=== PATIENT | female | born 1960 | race Asian ===

== ENCOUNTER 2017-01-01 07:19 | Inpatient (IN) | payer BC ==
[2016-12-29 11:21] VITALS: BMI 22.9
[2016-12-29 11:40] LABS: ADD UMIC NO; URINE BILIRUBIN (Dip) NEGATIVE (NEGATIVE); URINE BLOOD (Dip) NEGATIVE (NEGATIVE); URINE COLOR LT. YELLOW (YELLOW); URINE GLUCOSE (Dip) NEGATIVE (NEGATIVE); URINE KETONES (Dip) NEGATIVE (NEGATIVE); URINE LEUKOCYTE ESTERASE (Dip) NEGATIVE (NEGATIVE); URINE NITRITE (Dip) NEGATIVE (NEGATIVE); URINE TOTAL PROTEIN (Dip) NEGATIVE (NEGATIVE); URINE UROBILINOGEN (Dip) 0.2 E.U./dL (0.1-1.0)
--- NOTE | 2016-12-29 14:28 | PREOPHP ---
DATE OF ADMISSION: 01/01/2017 This patient is being admitted electively on 01/01/[address] Valentino Domingo. HISTORY OF PRESENT ILLNESS: This 56-year-old female has been having low back pain for months. The patient said that at one time the pain that was radiating down her left leg and she was diagnosed wi th left sciatica. She says that the pain has subsided in her left leg; however, she continues to lagos ve low back pain. She describes it as a pressure type pain. She has failed medical therapy and has decided to undergo a lumbar spine surgery. The patient at this time is on no medication. She did have a history of elevated cholesterol and was on a statin drug, but is no longer on that medication . PAST MEDICAL HISTORY: Remarkable for hyperlipidemia, back pain and urinary tract infection. ALLERGIES: SHE HAS NO KNOWN DRUG ALLERGIES. PAST SURGICAL HISTORY: 1. Left carpal tunnel syndrome repair, abdominal surgery for an abdominoplasty. 2. Breast augmentation. 3. . FAMILY HISTORY: Both parents are alive. Her father has had 3 CVAs. SOCIAL HISTORY: She does not smoke. She drinks alcohol socially. 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 REVIEW OF SYSTEMS: CONSTITUTIONAL: No chills, no weight gain, no loss of appetite, no fever, no weakness, no weight lo ss, no fatigue. OPHTHALMOLOGIC: Negative. EARS, NOSE AND THROAT: Negative. CARDIORESPIRATORY: She denies any exertional chest pain, chest pressure, cough, ankle swelling. Abel atkins has no history of heart disease or hypertension. GASTROINTESTINAL: Negative. NEURO: Negative at this time. She did have some left leg sciatica and tingling which has resolved. HEMATOLOGIC AND LYMPHATICS: Negative. DERMATOLOGIC: Negative. UROLOGIC: Negative. PHYSICAL EXAMINATION: GENERAL: At this time reveals a well-developed female in no apparent distress. VITAL SIGNS: Temperature 97.8, blood pressure 108/80, heart rate 60. HEENT: Head normocephalic. Eyes: Extraocular muscles intact. Nose and mouth: Normal. NECK: Supple. No neck vein distention. LUNGS: Clear to auscultation. HEART: Regular rhythm. No murmurs, gallops or rubs. ABDOMEN: Soft, nontender, no masses or megaly. EXTREMITIES: No peripheral edema. Pedal pulses were 2+ bilaterally. IMPRESSION: This patient is cleared for surgery. I will follow the patient along with you postoper atively. Dictated By: LAURA GARCIA MD ND/NTS Conf#: [id number] DID#: [id number] CC: VALENTINO DOMINGO MD;*EndCC*
[~2017-01-01] VITALS: Ht 154.9 cm; Wt 55.4 kg
[2017-01-01] VITALS (23 sets, daily range): BP systolic 99–144; BP diastolic 49–85; PULSE 62–88; RESP 12–19; Ht 154.9 cm; Wt 55.4 kg
[2017-01-01] MEDS: LACTATED RINGER'S 1,000 ML IV* SCH (05:00)
[~2017-01-01 07:19] MED LIST: CEFAZOLIN 2 GM/50 ML (PMX) 50 ML IVPB ONE
--- NOTE | 2017-01-01 07:37 | HPN ---
Date/Time of Note Date/Time of Note DATE: 01/01/17 TIME: 07:37 Interval H&P Admission Note Pt. seen H&P reviewed: No system changes JESICA GARCIA MD Jan 01, 2017 07:37
[2017-01-01] MEDS ORDERED: FENTAnyl 50 MCG/ML VIAL ONE (07:49)
[2017-01-01] MEDS ORDERED: BUPIVACAINE 0.25% (MPF) 10 ML 10 ML VIAL ONE (08:12)
[2017-01-01] MEDS ORDERED: GELATIN SIZE 100 SPONGE ONE (08:12)
[2017-01-01] MEDS ORDERED: POLYMYXIN/BACITRACIN 1L IRRIG ONE (08:12)
[2017-01-01] MEDS ORDERED: THROMBIN 5000 UNIT VIAL ONE (08:12)
[2017-01-01] MEDS ORDERED: SUCCINYLCHOLINE CHLORIDE 100 MG/5 ML SYG IV ONE (08:29)
[2017-01-01] MEDS ORDERED: GLYCOPYRROLATE 0.4 MG INJ ONE (08:29)
[2017-01-01] MEDS ORDERED: DEXAMETHASONE 4 MG/ML 1 ML INJ ONE (08:29)
[2017-01-01] MEDS ORDERED: ROCURONIUM 50 MG INJ ONE (08:29)
[2017-01-01] MEDS ORDERED: NEOSTIGMINE 3 MG/3 ML SYRINGE ONE (08:29)
[2017-01-01] MEDS ORDERED: ONDANSETRON 4 MG INJ ONE ×2 (08:29→09:40)
[2017-01-01] MEDS ORDERED: PROPOFOL 40 ML ONE (08:29)
[2017-01-01] MEDS ORDERED: LIDOCAINE 2% (SDV) 5 ML INJ ONE (08:29)
[2017-01-01] MEDS: DEXTROSE 5%-0.45% NACL 1,000 ML IV SCH ×3 (09:29→19:29)
[2017-01-01] MEDS ORDERED: BETHANECHOL 25 MG TAB PO PRN (09:30)
[2017-01-01] MEDS ORDERED: PROCHLORPERAZINE 10 MG TAB PO PRN (09:30)
[2017-01-01] MEDS ORDERED: NACL 0.9% 3 ML SYG IV SCH (09:30)
[2017-01-01] MEDS ORDERED: AL HYDROX/MG HYDROX/SIMETH 30 ML CUP PO PRN (09:30)
[2017-01-01] MEDS ORDERED: ZOLPIDEM 5 MG TAB PO PRN (09:30)
[2017-01-01] MEDS ORDERED: TRIMETHOBENZAMIDE 100 MG/ML VIAL IM PRN (09:30)
[2017-01-01] MEDS ORDERED: NALOXONE (0.4 MG/ML) INJ IV PRN (09:30)
[2017-01-01] MEDS ORDERED: ACETAMINOPHEN 325 MG TAB PO PRN (09:30)
[2017-01-01] MEDS ORDERED: ONDANSETRON 4 MG INJ IV PRN ×2 (09:30→10:00)
[2017-01-01] MEDS ORDERED: DIAZEPAM 5 MG/ML SYG IM PRN (09:30)
[2017-01-01] MEDS ORDERED: DIPHENHYDRAMINE 50 MG CAP PO PRN (09:30)
[2017-01-01] MEDS ORDERED: HYDROmorphONE 0.2 MG/ML PCA IV SCH (09:30)
--- NOTE | 2017-01-01 09:38 | OPR ---
Date/Time of Note Date/Time of Note DATE: 01/01/17 TIME: 09:32 Operative Report Preoperative Diagnosis Lumbar spinal stenosis at L4-5 with radiculopathy Postoperative Diagnosis Same Operation Performed Central decompressive laminectomy at L4 Partial central decompressive laminectomy at L5 (superiorly) Medial facetectomy and foraminotomy L4-5 bilaterally Cosmetic wound closure (4 cm) Lateral localizing lumbar radiographs (2) Intraoperative nerve monitoring (1 hour) Surgeon: JESICA GARCIA MD news production assistant: ANAND SALGADO Anesthesia: general Anesthesiologist: JEAN DAWN Estimated Blood Loss: 10 - 50 ml's Specimens Spinous process of L4 Tubes/Drains 2 medium Hemovac drains employed Complications: None Pt Condition Post Procedure: stable Disposition: PACU Operative\Procedure Findings At surgery moderate central and moderately severe lateral recess stenosis at L4- 5 bilaterally was confirmed JESICA GARCIA MD Jan 01, 2017 09:37
[2017-01-01] MEDS ORDERED: HYDROmorphONE (0.2 MG/ML) 10ML SYG IV ONE (09:40)
[2017-01-01] MEDS ORDERED: MEPERIDINE 25 MG INJ ONE (09:40)
[2017-01-01] MEDS ORDERED: HYDROmorphONE 0.2 MG/ML PCA ONE (09:48)
[2017-01-01] MEDS: HYDROmorphONE (0.2 MG/ML) 10ML SYG IV PRN ×5 (09:50→10:17)
[2017-01-01] MEDS ORDERED: DIPHENHYDRAMINE 50 MG INJ IV PRN (10:00)
[2017-01-01] MEDS ORDERED: METOCLOPRAMIDE 10 MG INJ IV PRN (10:00)
[2017-01-01] MEDS ORDERED: OXYCODONE/ACETAMINOPHEN (5/325) TAB PO PRN (10:00)
[2017-01-01] MEDS ORDERED: ALBUTEROL 0.083% (NEB) 2.5 MG/3 ML AMP HHN ONE (10:00)
[2017-01-01] MEDS ORDERED: MEPERIDINE 25 MG INJ IV PRN (10:00)
[2017-01-01] MEDS ORDERED: FENTAnyl 50 MCG/ML VIAL IV PRN ×2 (10:00)
[2017-01-01] MEDS ORDERED: HYDROmorphONE (0.2 MG/ML) 10ML SYG IV PRN ×2 (10:00)
[2017-01-01] MEDS: CEPASTAT LOZENGE MT PRN (11:13)
[2017-01-01] MEDS: DIAZEPAM 5 MG TAB PO PRN ×2 (11:13→18:45)
[2017-01-01] MEDS: CEFAZOLIN 1 GM/50 ML (PMX) 50 ML IVPB SCH ×2 (11:13→18:45)
--- NOTE | 2017-01-01 13:07 | CONS ---
DATE OF ADMISSION: 01/01/2017 DATE OF CONSULTATION: TYPE OF CONSULTATION: Medical. Thank you, Dr. Domingo, for asking me to participate in medical management of this patient. REASON FOR CONSULTATION: Dizziness after surgery. HISTORY OF PRESENT ILLNESS: This 56-year-old female is now having dizziness after undergoing a lumb ar spine surgery today. The patient had low back pain that has been present for months. She was se en by me last week as a preoperative clearance. The patient underwent a lumbar spine surgery alexandrea atkins of spinal stenosis at the L4-5 level with radiculopathy. She underwent a central decompressive la minectomy at L4, a partial central decompressive laminectomy at L5. She is now in her room. She is a little lethargic but does arouse easily to verbal stimuli. She does complain of some dizziness; however, she has no nausea or vomiting. PAST MEDICAL HISTORY: Unremarkable except for a history of hyperlipidemia and urinary tract infecti on many years ago. She said that she was on a statin drug for some time, but stopped. She has not had any urinary symptoms recently. ALLERGIES: SHE HAS NO KNOWN DRUG ALLERGIES. PAST SURGICAL HISTORY: Left carpal tunnel syndrome repair, abdominal surgery for an abdominoplasty, breast altered mentation . FAMILY HISTORY: Both parents are alive. Her father has had 3 strokes. SOCIAL HISTORY: The patient does not smoke. She drinks alcohol socially. 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 PHYSICAL EXAMINATION: GENERAL: At this time reveals a well-developed female in no apparent distress. VITAL SIGNS: Temperature 98.7, pulse 71, respirations 16, blood pressure 110/65, O2 saturation 95% on room air. HEENT: Head normocephalic. Eyes: Extraocular muscles intact. NOSE AND MOUTH: Normal. NECK: Supple. No neck vein distention. LUNGS: Clear to auscultation. HEART: Regular rhythm. No murmurs, gallops or rubs. ABDOMEN: Soft, nontender. EXTREMITIES: No peripheral edema. IMPRESSION: This patient has some dizziness after surgery today. This is related to the anesthesia . She is a little lethargic but arouses easily to verbal stimuli. The dizziness should wear off as the anesthesia wears off. PLAN: 1. Postoperative lumbar spine surgery protocol. 2. Check labs in the morning. 3. I will follow the patient along with you. Dictated By: LAURA GARCIA MD, ND/ENIO Conf#: [id number] DID#: [id number]
--- NOTE | 2017-01-01 13:13 | OPR ---
DATE OF OPERATION: 01/01/2017 PREOPERATIVE DIAGNOSIS: Lumbar spinal stenosis at L4-L5 with radiculopathy. POSTOPERATIVE DIAGNOSIS: Lumbar spinal stenosis at L4-L5 with radiculopathy. OPERATIONS PERFORMED: 1. Central decompressive laminectomy at L4. 2. Partial central decompression laminectomy at L5 (superiorly). 3. Medial facetectomy and foraminotomy, L4-L5 bilaterally. 4. Cosmetic wound closure (4 cm). 5. Lateral localized lumbar radiographs (2). 6. Intraoperative nerve monitoring (1 hour). SURGEON: Valentino Domingo MD BARREL ASSEMBLER: JACINTO Arnold ANESTHESIA: General endotracheal. ANESTHESIOLOGIST: Zach Rowe MD ESTIMATED BLOOD LOSS: 20 mL, none replaced. DRAINS: Two medium Hemovac drains employed. COMPLICATIONS: None. PERTINENT HISTORY AND PHYSICAL: This is a 56-year-old female with persistent back and left leg pain which has been unrelieved by conservative management. She has undergone a number of diagnostic cecily dies including an MRI of the lumbar spine which demonstrated a moderate central and moderately sever e lateral recess stenosis at L4-L5. Treatment options were discussed with the patient, she elected to proceed with surgery. OPERATIVE FINDINGS AT SURGERY: A moderate central and moderately severe lateral recess stenosis rashmi aterally at L4-L5 was confirmed. The baseline intraoperative nerve monitoring revealed a decrease i n the left L4 potential of 60% and the left L5 potential of 30%. These both returned to normal at [facility] completion of the surgery. OPERATIVE PROCEDURE: With the patient in supine position after satisfactory induction of general en dotracheal anesthesia by Dr. Rowe, the patient was turned to the prone kneeling position onto [facility] frame. All pressure points were carefully padded. The back was prepped and draped in [facility] usual sterile fashion. Athrombic pumps were applied to the legs below the knees, then venous sta sis during and after procedure. Two spinal needles were placed next to what was felt to be the L4 a nd L5 spinous processes, lateral roentgenogram was taken which confirmed anatomic localization. A 4 cm incision was then carried out at the midline over the spinous process of L4 after skin was infil trated with 0.25% Marcaine without epinephrine for postoperative analgesia. Superficial retractors were placed and hemostasis secured with electrocautery. Throughout the procedure, copious amounts o f antibacterial irrigating solution were used to periodically irrigate the wound. The fascia was in cised in the midline with a hot knife and a bilateral subperiosteal dissection carried out at L4-L5. Deep retractors were placed and deep hemostasis secured with electrocautery. A second intraoperat viviana radiograph was taken with Jody clamp placed in what was felt to be the spinous process of L4 a nd this was confirmed with second x-ray. A central decompressive laminectomy at L4 was then carried out using a Lázaro right-angle bone rongeur, Leksell rongeur, Kerrison punches, and curettes. The operating microscope was then moved into place. A medial facetectomy and foraminotomy was accompli shed at L4-L5 bilaterally using small hand osteotome, mallet, Kerrison punches, and curettes. A tho rough search of the floor of the canal was made with an arthroscopic probe, and no additional fragme nts were encountered. The anesthesiologist was then asked to perform a Valsalva maneuver at 40 mmHg and no spinal fluid leak was noted. The wound was then closed in layers over 2 medium Hemovac drai ns using #1 Stratafix sutures on the deep paralumbar musculature and deep fascia of the back, 2-0 St ratafix sutures in subQ tissue, and a 4-0 Vicryl subcuticular cosmetic closing suture on the skin. Dermabond and sterile compressive dressings were applied. The patient having tolerated the procedur e was then turned to supine position onto her bed and extubated by Dr. Rowe. She was transport ed to the recovery room in satisfactory condition. At the conclusion of the procedure, sponge, inst rument, and needle counts were all correct. NEED FOR CYLINDRICAL MIXER: During this spinal surgical procedure, my retail event assistant was used to retrac t and protect the spinal nerves and dural sac. My retail event assistant also employed the suction catheters to e vacuate blood from the surgical field to improve visualization of the neural structures. The assista nt was medically necessary to facilitate the completion of the surgery in a safe and expeditious man ner. State of [place] regulations, as well as hospital bylaws, preclude the use of non-licensed [place] care personnel such as operating room technicians, to perform these functions. Throughout the procedure, neural monitoring was carried out by [employer] including EMG, SSEP, and MEP monitoring of the L3, L4, L5, and S1 nerve roots bilaterally along with spinal cord potentials. These were interpreted by a neurologist employed by [employer]. Dictated By: VALENTINO DOMINGO MD TM/NTS Conf#: [id number] DID#: [id number] CC: LAURA GARCIA MD;*EndCC*
--- NOTE | 2017-01-01 16:59 | RADRPT ---
PROCEDURE: XR Lumbar Spine one view. CLINICAL INDICATION: Low back pain. Intraoperative. TECHNIQUE: Prone portable cross-table lateral. COMPARISON: No prior studies are available for comparison. FINDINGS: For the purposes of this report, the last apparent true disc level is considered to be L5-S1. Based on this, the posterior needle markers are present at the L4 spinous process level and lower L5 spin ous process level. IMPRESSION: 1. Intraoperative imaging as described above. RPTAT: QQ .Rusty Huizar MD, Date Time Electronically viewed and signed by .Rusty Huizar MD, on 01/01/2017 16:58 .R/
--- NOTE | 2017-01-01 17:00 | RADRPT ---
PROCEDURE: XR Lumbar Spine one view. CLINICAL INDICATION: Low back pain. Intraoperative. TECHNIQUE: Prone portable cross-table lateral. COMPARISON: Prior study done earlier the same day. FINDINGS: For the purposes of this report, the last apparent true disc level is considered to be L5-S1. Based on this, the posterior surgical instrument is present overlying the L4 spinous process level. IMPRESSION: 1. Intraoperative imaging as described above. RPTAT: QQ .Rusty Huizar MD, MD Date Time Electronically viewed and signed by .Rusty Huizar MD, MD on 01/01/2017 16:59 .R/
[2017-01-01] MEDS: RANITIDINE 150 MG TAB PO SCH (21:36)
[2017-01-02 00:02] VITALS: BP 106/55; RESP 20
[2017-01-02] MEDS: CEFAZOLIN 1 GM/50 ML (PMX) 50 ML IVPB SCH ×2 (00:21→05:51)
[2017-01-02] MEDS: LACTATED RINGER'S 1,000 ML IV* SCH (04:54)
[2017-01-02] MEDS: DEXTROSE 5%-0.45% NACL 1,000 ML IV SCH ×2 (04:54→09:00)
[2017-01-02 05:24] LABS: HEMATOCRIT 35.9 % (37.0-47.0)
--- NOTE | 2017-01-02 06:58 | PN ---
Date/Time of Note Date/Time of Note DATE: 01/02/17 TIME: 06:56 Assessment/Plan Lines/Catheters IV C[facility]ter Type (from [facility]): Peripheral IV Subjective 24 Hr Interval Summary The patient is postop day #1 following a decompressive laminectomy at L4 and the upper part of L5. She is resting comfortably in bed. Neurovascular structures are intact distally. Her a.m. labs are normal, but her chemistries are pending. She has been up with physical therapy. Physical therapy will be seeing her 3-4 times today until she is cleared. Her Hemovac has 90 cc this morning, and will be left in place. She will be discharged home when she is cleared by physical therapy, and her Hemovac drainage diminishes. Exam/Review of Systems Vital Signs Vitals Vital Signs Date Time Temp Pulse Resp B/P Pulse Ox O2 Delivery O2 Flow Rate FiO2 01/02/17 05:00 16 01/02/17 00:02 98.5 69 106/55 97 01/01/17 16:15 Room Air Intake and Output 01/01/17 01/01/17 01/02/17 15:00 23:00 07:00 Intake Total 1200 ml 1100 ml 1250 ml Output Total 30 ml 300 ml 890 ml Balance 1170 ml 800 ml 360 ml Results Result Diagram: 01/02/17 0421 JESICA GARCIA MD Jan 02, 2017 06:58
[2017-01-02 07:20] LABS: CREATININE 0.68 mg/dl (0.44-1.00)
[2017-01-02 07:22] LABS: CALCIUM 8.6 mg/dl (8.4-10.2)
[2017-01-02] MEDS ORDERED: BETHANECHOL 25 MG TAB PO PRN (08:00)
[2017-01-02 08:08] VITALS: BP 117/55; RESP 18
--- NOTE | 2017-01-02 08:47 | CONS ---
Date/Time of Note Date/Time of Note DATE: 01/02/17 TIME: 08:43 Assessment/Plan Assessment/Plan Chief Complaint/Hosp Course 1. She is one post op a lumbar spine surgery , she is doing well 2. continue current medication and PT . Problems: Consultation Date/Type/Reason Admit Date/Time Jan 01, 2017 at 09:32 Initial Consult Date 24 HR Interval Summary Free Text/Dictation she is awake and alert . no complaints Constitutional: improved, no complaints Exam/Review of Systems Vital Signs Vitals Vital Signs Date Time Temp Pulse Resp B/P Pulse Ox O2 Delivery O2 Flow Rate FiO2 01/02/17 08:08 98.7 68 18 117/55 97 01/01/17 16:15 Room Air Intake and Output 01/01/17 01/01/17 01/02/17 15:00 23:00 07:00 Intake Total 1200 ml 1100 ml 1250 ml Output Total 30 ml 300 ml 890 ml Balance 1170 ml 800 ml 360 ml Exam Constitutional: alert, oriented, well developed Respiratory: clear to auscultation, normal air movement Cardiovascular: regular rate and rhythm Gastrointestinal: soft Musculoskeletal: nl extremities to inspection Results Result Diagram: 01/02/17 0421 01/02/17 0421 Results 24 hrs Laboratory Tests Test 01/02/17 04:21 Hemoglobin 12.0 Hematocrit 35.9 L Sodium Level 135 Potassium Level 4.0 Chloride Level 102 Carbon Dioxide Level 25 Anion Gap 12 Blood Urea Nitrogen 14 Creatinine 0.68 Glucose Level 117 Calcium Level 8.6 Medications Medications Current Medications Lactated Ringer's 1,000 ml @ 20 mls/hr Q24H IV* ; Start 01/01/17 at 05:00 Dextrose/Sodium Chloride (D5-1/2ns) 1,000 ml @ 100 mls/hr Q10H IV Last administered on 01/01/17t 11:13; Admin Dose 100 MLS/HR; Start 01/01/17 at 09:29 Acetaminophen/ Hydrocodone Bitart ([place] (5/325)) 1 tab Q4H PRN PO PAIN LEVEL 1 -5; Start 01/01/17 at 09:30 Acetaminophen/ Hydrocodone Bitart (Drybranch (5/325)) 2 tab Q4H PRN PO PAIN LEVEL 6 -10; Start 01/01/17 at 09:30 Zolpidem Tartrate (Ambien) 5 mg HS PRN PO INSOMNIA; Start 01/01/17 at 09:30 Prochlorperazine (Compazine) 10 mg Q4H PRN PO NAUSEA AND/OR VOMITING; Start at 09:30 Trimethobenzamide HCl (Tigan) 200 mg Q4H PRN IM NAUSEA AND/OR VOMITING; Start 01/01/17 at 09:30 Ondansetron HCl (Zofran Inj) 4 mg Q6H PRN IV NAUSEA AND/OR VOMITING; Start at 09:30 Al Hydrox/Mg Hydrox/Simethicone (Mag-Al Plus) 15 ml Q4H PRN PO CONSTIPATION; Start 01/01/17 at 09:30 Docusate Sodium (Colace) 100 mg BID PO ; Start 01/02/17 at 09:00 Acetaminophen (Tylenol Tab) 650 mg Q4H PRN PO TEMP GREATER THAN 101F OR VILLARREAL; Start 01/01/17 at 09:30 Ascorbic Acid (Vitamin C) 1,000 mg BID PO ; Start 01/02/17 at 09:00 Ferrous Sulfate (Ferrous Sulfate (Ec)) 325 mg TID PO ; Start 01/02/17 at 09:00 Ranitidine HCl (Zantac) 150 mg BID PO Last administered on 01/01/17 21:36; Admin Dose 150 MG; Start 01/01/17 at 21:00 Diazepam (Valium) 5 mg Q4H PRN PO MUSCLE SPASMS Last administered on 01/01/17 18:45; Admin Dose 5 MG; Start 01/01/17 at 09:30 Diazepam (Valium) 5 mg Q4H PRN IM MUSCLE SPASMS; Start 01/01/17 at 09:30 Phenol (Cepastat Lozenge) 1 lozenge PRN PRN MT SORE THROAT Last administered on 01/01/17 11:13; Admin Dose 1 LOZENGE; Start 01/01/17 at 09:30 Bethanechol Chloride (Urecholine) 25 mg PRN PRN PO UNABLE TO VOID; Start at 09:30 Diphenhydramine HCl (Benadryl) 50 mg Q6H PRN PO PRURITUS; Start 01/01/17 at 09: 30 Hydromorphone HCl (Dilaudid [employer]) Q4PCA IV Last administered on 01/01/17t 09:54 ; Admin Dose 6 MG; Start 01/01/17 at 09:30 Naloxone HCl (Narcan) 0.2 mg Q2M PRN IV RR 8 BREATHS/MIN OR LESS; Start at 09:30 Bethanechol Chloride (Urecholine) 25 mg PRN PRN PO UNABLE TO VOID; Start at 08:00 LAURA GARCIA MD Jan 02, 2017 08:47
[2017-01-02] MEDS: FERROUS SULFATE (EC) 325 MG TAB PO SCH ×3 (09:08→19:50)
[2017-01-02] MEDS: ASCORBIC ACID 500 MG TAB PO SCH ×2 (09:09→19:51)
[2017-01-02] MEDS: RANITIDINE 150 MG TAB PO SCH ×2 (09:09→19:51)
[2017-01-02] MEDS: DOCUSATE SODIUM 100 MG CAP PO SCH ×2 (09:09→19:50)
[2017-01-02] MEDS: HYDROCODONE/APAP (5/325) TAB PO PRN ×3 (11:56→19:52)
[2017-01-02 22:08] LABS: ADD UMIC YES; URINE BILIRUBIN (Dip) NEGATIVE (NEGATIVE); URINE BLOOD (Dip) NEGATIVE (NEGATIVE); URINE COLOR LT. YELLOW (YELLOW); URINE GLUCOSE (Dip) NEGATIVE (NEGATIVE); URINE KETONES (Dip) NEGATIVE (NEGATIVE); URINE LEUKOCYTE ESTERASE (Dip) 1+ (NEGATIVE); URINE NITRITE (Dip) NEGATIVE (NEGATIVE); URINE TOTAL PROTEIN (Dip) NEGATIVE (NEGATIVE); URINE UROBILINOGEN (Dip) 0.2 E.U./dL (0.1-1.0)
[2017-01-02 22:37] LABS: SQUAMOUS EPITHELIAL CELL,UR FEW; URINE RBCS 0-2 /HPF ([, 0])
[2017-01-02 22:38] LABS: BACTERIA,URINE RARE
[2017-01-03] MEDS: CEPASTAT LOZENGE MT PRN ×2 (00:18→04:45)
[2017-01-03] MEDS: DEXTROSE 5%-0.45% NACL 1,000 ML IV SCH (01:29)
[2017-01-03] MEDS: HYDROCODONE/APAP (5/325) TAB PO PRN ×2 (04:46→09:28)
[2017-01-03] MEDS: LACTATED RINGER'S 1,000 ML IV* SCH (05:00)
--- NOTE | 2017-01-03 06:45 | PN ---
Date/Time of Note Date/Time of Note DATE: 01/03/17 TIME: 06:44 Assessment/Plan Lines/Catheters IV Catheter Type (from Nrs): Saline Lock Subjective 24 Hr Interval Summary The patient is postop day #2 following a decompressive laminectomy at L4-5. She is resting comfortably in bed. Neurovascular structures are intact distally. She will be discharged home when cleared by physical therapy. She was given strict discharge precautions and instructions. She was given back information sheets. She will follow-up in my office in 1-2 weeks. Exam/Review of Systems Vital Signs Vitals Vital Signs Date Time Temp Pulse Resp B/P Pulse Ox O2 Delivery O2 Flow Rate FiO2 01/02/17 08:08 98.7 68 18 117/55 97 01/01/17 16:15 Room Air Intake and Output 01/02/17 01/02/17 01/03/17 15:00 23:00 07:00 Intake Total 200 ml 1000 ml 1050 ml Output Total 10 ml 700 ml 980 ml Balance 190 ml 300 ml 70 ml Results Result Diagram: 01/02/17 0421 01/02/17 0421 JESICA GARCIA MD Jan 03, 2017 06:45
[2017-01-03 08:28] VITALS: BP 116/66; RESP 20
[2017-01-03] MEDS: RANITIDINE 150 MG TAB PO SCH (09:00)
[2017-01-03] MEDS: DOCUSATE SODIUM 100 MG CAP PO SCH (09:28)
[2017-01-03] MEDS: ASCORBIC ACID 500 MG TAB PO SCH (09:29)
[2017-01-03] MEDS: FERROUS SULFATE (EC) 325 MG TAB PO SCH (09:29)
== END 2017-01-03 11:30 | disposition home or self-care (01) | DRG 517 ==
LOC: SDS 07:19 → MS1 09:32 → SDS 09:32 → MS1 10:45 → EDSTATUS 11:30
PROVIDERS: ADMIT Orthopaedic Surgery; ATTEND Orthopaedic Surgery
PROC: 4A11X4G Monitoring of Peripheral Nervous Electrical Activity, Intraoperative, External Approach (ICD-10-PCS; 2017-01-01)
PROC: 01NB0ZZ Release Lumbar Nerve, Open Approach (ICD-10-PCS; principal; 2017-01-01 07:00)
DX: M48.06 Spinal stenosis, lumbar region (principal); M54.16 Radiculopathy, lumbar region
CPT/HCPCS: 72020; 80048; 81001; 81003; 84703; 85014; 85018; 86850; 86900; 86901; 86920; 97116; 97162; 97530; J0330; J0690; J1100; J1170; J2175; J2405; J2710; J3010; J7042; J7120